=== PATIENT | female | born 1995 | race Caucasian/White ===

== ENCOUNTER 2017-03-07 16:32 | Emergency (ER) | payer MEDICAID, OTHER ==
[~2017-03-07] VITALS: Ht 160 cm; Wt 82.0 kg
[~2017-03-07 16:32] MED LIST: ACET325T33 PO; BEN50 PO; CALC600T PO; CETI10CA PO; ERYTOPOI BOTH EYES; FERGON PO; FERR240T9 PO; GUAI120S26 PO; IBUP-1542 PO; LORA-186 PO; NAPR-260 PO; PRENAT PO
[2017-03-07 17:00] VITALS: Ht 160 cm; Wt 82.0 kg
[2017-03-07] MEDS ORDERED: IBUPROFEN 600 MG TAB PO ONE (18:30)
--- NOTE | 2017-03-07 18:47 | ERD ---
ER Documentation Chief Complaint Date/Time DATE: 03/07/17 TIME: 18:43 Chief Complaint right knee and leg pain x 2 week HPI 21-year-old female complaining of right knee pain 2 weeks. Patient stated that she tripped while walking down the stairs, fell forward and landed on her right knee. She was able to bear weight immediately after the fall. She has been walking with pain. Yesterday, she felt that her right knee "gave out" and she fell again. 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 Denies hitting her head in the fall. Denies any other injuries. ROS All systems reviewed and are negative except as per history of present illness. Medications Home Meds Active Scripts Ibuprofen* (Motrin*) 600 Mg Tab, 600 MG PO Q6H Y for PAIN AND OR ELEVATED TEMP, #30 TAB Prov:EREN MUHAMMAD. POULTRY BONER 03/07/17 Erythromycin* (Erythromycin* Ophthalmic) 1 Applic Oint, 1 APPLIC BOTH EYES QID for 7 Days, EA Prov:MOSES MONTELONGO PA-C 10/02/16 Diphenhydramine Hcl* (Benadryl*) 50 Mg Cap, 50 MG PO QHS, #30 CAP Prov:MOSES MONTELONGO PA-C 10/02/16 Acetaminophen* (Tylenol*) 325 Mg Tablet, 2 TAB PO Q6 Y for PAIN AND OR ELEVATED TEMP, #30 TAB Prov:MOSES MONTELONGO PA-C 09/29/16 Loratadine* (Claritin*) 10 Mg Tablet, 10 MG PO DAILY, #30 TAB Prov:MOSES MONTELONGO PA-C 09/29/16 Naproxen* (Naprosyn*) 500 Mg Tablet, 500 MG PO BID Y for PAIN AND/OR INFLAMMATION, #30 TAB Prov:MOSES MONTELONGO PA-C 09/29/16 Ibuprofen* (Motrin*) 600 Mg Tab, 600 MG PO Q6, #30 TAB Prov:DEANNA HAGER PA-C 08/18/16 Cqkjgxomvhy-S-Mabngqalth Hb* (Guaifenesin* DM Syrup) 120 Ml Syrup, 10 ML PO Q4H Y for COUGH, #120 ML Prov:DEANNA HAGER PA-C 08/18/16 Cetirizine Hcl* (Zyrtec*) 10 Mg Capsule, 10 MG PO DAILY, #30 TAB Prov:DEANNA HAGER PA-C 08/18/16 Ibuprofen* (Motrin*) 600 Mg Tab, 600 MG PO Q6, #30 TAB Prov:SIDNEY CHATMAN PA-C 05/10/16 Ferrous Gluconate* (Fergon*) 325 Mg Tab, 325 MG PO BID, #120 TAB 0 Refills Prov:GROVER MARINO MD 06/11/15 Ibuprofen* (Motrin*) 600 Mg Tab, 600 MG PO Q6, #20 TAB 0 Refills Prov:GROVER MARINO MD 06/11/15 Reported Medications Ferrous Gluconate (Iron) 1 Tab Tablet, 1 TAB PO DAILY 04/14/15 Calcium Carbonate (Oyster Shell Calcium) 600 Mg Tablet, 600 MG PO DAILY 04/14/15 Multivit/Min/Fol Ac/Iron/Pren* ( S*) 1 Tab Tab, 1 TAB PO DAILY, TAB 02/10/15 Allergies Allergies: Coded Allergies: No Known Drug Allergies (Verified Allergy, Mild, 03/07/17) PMhx/Soc History of Surgery: Yes (appendectomy) Hx Neurological Disorder: No Hx Respiratory Disorders: Yes (ASTHMA) Hx Cardiac Disorders: No Hx Miscellaneous Medical Probl: Yes (ANEMIA) Hx Alcohol Use: No Hx Substance Use: No Hx Tobacco Use: No Smoking Status: Never smoker Physical Exam Vitals Vital Signs Date Time Temp Pulse Resp B/P Pulse Ox O2 Delivery O2 Flow Rate FiO2 03/07/17 17:00 98.0 73 18 137/82 98 Physical Exam General impression: Well-developed, well-nourished. Alert, oriented, in no acute distress Head: Normocephalic, atraumatic. Eyes: PERRL, EOM normal. Sclerae are normal. Conjunctiva not injected. Neck: Supple, nontender. No lymphadenopathy. No nuchal rigidity. Respiration: Normal respiratory effort. Lungs clear to auscultate bilaterally. No wheezes, rales or rhonchi. Cardiovascular: Regular rate and rhythm. No murmurs or extra heart sounds. Back: Normal to inspection. No midline spine tenderness. No CVA tenderness. Extremities: Mild swelling noted in the superior aspect of the right knee. Mild tenderness to palpation surrounding the patella on the right knee, more on the superior aspect. No joint line tenderness. Negative anterior and posterior drawers test, negative varus and valgus stress. ROM normal. Neurovascularly intact distally. Neuro: Mental status normal, speech normal. DISPATCHER CLERK grossly intact. Skin: Normal turgor. No rash or lesions. Psych: Normal mood and affect. Results 24 hrs Current Medications Medications (Trade) Dose Ordered Sig/Iva Route PRN Reason Start Time Stop Time Status Last Admin Dose Admin Ibuprofen (Motrin) 600 mg ONCE ONCE PO 03/07/17 18:30 03/07/17 18:32 DC 03/07/17 18:50 PROCEDURE: XR right knee. CLINICAL INDICATION: Knee pain TECHNIQUE: AP, tunnel, lateral and sunrise views are available for review. COMPARISON: None available FINDINGS: The osseous structures are normal in mineralization, architecture and alignment. No fractures are identified. No osseous lesions are identified. The joints are unremarkable. The soft tissues are unremarkable. There is a small suprapatellar joint effusion. IMPRESSION: Small suprapatellar joint effusion No osseous abnormalities identified RPTAT: HGDB .Stephen Haji MD, MD Date Time Electronically viewed and signed by .Stephen Haji MD, MD on 03/07/2017 19:22 .B/ CC: EREN MUHAMMAD POULTRY BONER Procedures/MDM Well-appearing 21-year-old female presents with right knee pain after falling 2 weeks ago. X-ray of the right knee showed mild effusion in the suprapatellar joint space. No fractures or dislocation were seen. The area of injury was immobilized with an Quang wrap. Patient was noted to be comfortable and neurovascularly intact both before and after the immobilization. Patient appears well, stable for discharge and outpatient management. Medical decision making shared with patient and family. Education provided to patient and family. Patient and family expressed understanding of the plan. Medications on discharge: Ibuprofen. Follow-up: Primary care provider in 2-3 days or return to ED if worse. EREN MUHAMMAD NP Mar 07, 2017 18:47
--- NOTE | 2017-03-07 19:23 | RADRPT ---
PROCEDURE: XR right knee. CLINICAL INDICATION: Knee pain TECHNIQUE: AP, tunnel, lateral and sunrise views are available for review. COMPARISON: None available FINDINGS: The osseous structures are normal in mineralization, architecture and alignment. No fractures are i dentified. No osseous lesions are identified. The joints are unremarkable. The soft tissues are u nremarkable. There is a small suprapatellar joint effusion. IMPRESSION: Small suprapatellar joint effusion No osseous abnormalities identified RPTAT: HGDB .Stephen Haji MD, MD Date Time Electronically viewed and signed by .Stephen Haji MD, MD on 03/07/2017 19:22 .B/
[2017-03-07] MEDS ORDERED: IBUP-1542 PO (19:34)
== END 2017-03-07 19:43 | disposition home or self-care (01) ==
LOC: FTE 16:32
DX: S89.91XA Unspecified injury of right lower leg, initial encounter (principal); J45.909 Unspecified asthma, uncomplicated; W10.9XXA Fall (on) (from) unspecified stairs and steps, initial encounter; Y92.9 Unspecified place or not applicable
CPT/HCPCS: 73564; Z7610

== ENCOUNTER 2017-06-23 12:53 | Emergency (ER) | payer MEDICAID ==
[~2017-06-23] VITALS: Wt 79.0 kg
[2017-06-23] MEDS ORDERED: LORAZEPAM 1 MG TAB PO ONE (13:30)
--- NOTE | 2017-06-23 14:56 | ERD ---
ER Documentation Chief Complaint Date/Time DATE: 06/23/17 TIME: 14:51 Chief Complaint PALPITATION, ON AND OFF X2 DAYS, NO PAIN AT THIS TIME HPI 21-year-old female patient with no significant past medical history presents the ED complaining of palpitations that started 3 days ago. Reports that she started to feel weird and started to get a few episodes of intermittent chest pain. Reports that she feels like she cannot breathe as her throat is clogging. Reports that she felt nauseous and slightly dizzy. States that she is going through a lot of stress. Reports that she is working as a [employer]. Denies any fever, chills, vomiting, diarrhea, abdominal pain, weakness. ROS All systems reviewed and are negative except as per history of present illness. Medications Home Meds Active Scripts Ibuprofen* (Motrin*) 600 Mg Tab, 600 MG PO Q6H Y for PAIN AND OR ELEVATED TEMP, #30 TAB Prov:EREN MUHAMMAD CABLE HOOKER 03/07/17 Erythromycin* (Erythromycin* Ophthalmic) 1 Applic Oint, 1 APPLIC BOTH EYES QID for 7 Days, EA Prov:MOSES MONTELONGO PA-C 10/02/16 Diphenhydramine Hcl* (Benadryl*) 50 Mg Cap, 50 MG PO QHS, #30 CAP Prov:MOSES MONTELONGO PA-C 10/02/16 Acetaminophen* (Tylenol*) 325 Mg Tablet, 2 TAB PO Q6 Y for PAIN AND OR ELEVATED TEMP, #30 TAB Prov:MOSES MONTELONGO PA-C 09/29/16 Loratadine* (Claritin*) 10 Mg Tablet, 10 MG PO DAILY, #30 TAB Prov:MOSES MONTELONGO PA-C 09/29/16 Naproxen* (Naprosyn*) 500 Mg Tablet, 500 MG PO BID Y for PAIN AND/OR INFLAMMATION, #30 TAB Prov:MOSES MONTELONGO PA-C 09/29/16 Ibuprofen* (Motrin*) 600 Mg Tab, 600 MG PO Q6, #30 TAB Prov:DEANNA HAGER PA-C 08/18/16 Evtbjoemonq-T-Gswspsyxsi Hb* (Guaifenesin* DM Syrup) 120 Ml Syrup, 10 ML PO Q4H Y for COUGH, #120 ML Prov:DEANNA HAGER PA-C 08/18/16 Cetirizine Hcl* (Zyrtec*) 10 Mg Capsule, 10 MG PO DAILY, #30 TAB Prov:DEANNA HAGER PA-C 08/18/16 Ibuprofen* (Motrin*) 600 Mg Tab, 600 MG PO Q6, #30 TAB Prov:SIDNEY CHATMAN PA-C 05/10/16 Ferrous Gluconate* (Fergon*) 325 Mg Tab, 325 MG PO BID, #120 TAB 0 Refills Prov:GROVER MARINO MD 06/11/15 Ibuprofen* (Motrin*) 600 Mg Tab, 600 MG PO Q6, #20 TAB 0 Refills Prov:GROVER MARINO MD 06/11/15 Reported Medications Ferrous Gluconate (Iron) 1 Tab Tablet, 1 TAB PO DAILY 04/14/15 Calcium Carbonate (Oyster Shell Calcium) 600 Mg Tablet, 600 MG PO DAILY 04/14/15 Multivit/Min/Fol Ac/Iron/Pren* ( S*) 1 Tab Tab, 1 TAB PO DAILY, TAB 02/10/15 Allergies Allergies: Coded Allergies: No Known Drug Allergies (Verified Allergy, Mild, 03/07/17) PMhx/Soc History of Surgery: Yes (appendectomy) Hx Neurological Disorder: No Hx Respiratory Disorders: Yes (ASTHMA) Hx Cardiac Disorders: No Hx Miscellaneous Medical Probl: Yes (ANEMIA) Hx Alcohol Use: No Hx Substance Use: No Hx Tobacco Use: No Physical Exam Vitals Vital Signs Date Time Temp Pulse Resp B/P Pulse Ox O2 Delivery O2 Flow Rate FiO2 06/23/17 12:55 98.0 95 17 147/79 96 Physical Exam Const: Ifs-dcu-qsrrorhau, well-nourished. In no acute distress. Head: Atraumatic, normocephalic Eyes: Normal Conjunctiva without injection. No purulent discharge. PERRL. EOMI ENT: Normal external ear. Ear canal without erythema. Tympanic membrane pearly brown without effusion or bulging. Nasal canal clear with normal turbinates. Moist oropharynx without tonsillar exudates. Non-erythematous pharynx. Uvula midline. No drooling. No trismus. Neck: Full range of motion. No meningismus. No cervical lymphadenopathy. Resp: Clear to auscultation bilaterally. No wheezing, rhonchi, rales, or crackles. No accessory muscle use. No retractions. Cardio: Regular rate and rhythm. No murmurs, rubs or gallops. Abd: Soft, non tender, non distended. Normal bowel sounds. No palpable masses. No rebound tenderness. No guarding. Skin: No petechiae or rashes Back: No midline tenderness. No CVA tenderness. Ext: No cyanosis, or edema. Neur: Awake and alert. Psych: Normal Mood and Affect Results 24 hrs Current Medications Medications (Trade) Dose Ordered Sig/Iva Route PRN Reason Start Time Stop Time Status Last Admin Dose Admin Lorazepam (Ativan) 1 mg ONCE ONCE PO 06/23/17 13:30 06/23/17 13:31 DC 06/23/17 13:15 Procedures/MDM This is a 21-year-old female patient with no significant past medical history presents the ED complaining of palpitations and chest pain. Patient is afebrile and nontoxic-appearing. Patient has normal vital signs. An EKG was ordered to further evaluate patient. Patient was given Ativan 1 mg p.o. which improved her symptoms. EKG reviewed and interpreted by Dr. Guzman Rate/Rhythm: [81 bpm, Normal Sinus Rhythm] No ectopy, no ST elevations, normal axis. QRS, ST, T-waves: [No changes consistent w/ acute ischemia] Impression: [No evidence of ischemia or arrhythmia] Patient symptoms are likely due to anxiety. Relieving stress was discussed with the patient at this time. Resources were given. Low suspicion for acute myocardial infarction, pneumothorax, pneumonia, cardiac tamponade, pulmonary embolism, AAA, aortic dissection, Boerhaave's syndrome, cardiac dysrhythmias, meningitis, intracranial bleed, seizure, stroke, TIA or other emergent conditions. Follow up with primary care physician in 1-2 days. Instructed patient to return to the ED sooner for any worsening symptoms. Patient's questions were answered. Patient understood and agreed with discharge plan. Patient discharged stable. Departure Diagnosis: Primary Impression: Palpitations Condition: Stable Patient Instructions: Your Body's Response to Anxiety, Stress Relief: Activities, Stress Relief: Relaxation, Stress Relief: A Positive Lifestyle, Stress Relief: Changing Your Response, Anxiety Reaction, Palpitations Referrals: RAMSES LÓPEZ MD (PCP) [facility] YOU HAVE RECEIVED A MEDICAL SCREENING EXAM AND THE RESULTS INDICATE THAT YOU DO NOT HAVE A CONDITION THAT REQUIRES URGENT TREATMENT IN THE EMERGENCY DEPARTMENT. FURTHER EVALUATION AND TREATMENT OF YOUR CONDITION CAN WAIT UNTIL YOU ARE SEEN IN YOUR DOCTORS OFFICE WITHIN THE NEXT 1-2 DAYS. IT IS YOUR RESPONSIBILITY TO MAKE AN APPOINTMENT FOR FOLOW-UP CARE. IF YOU HAVE A PRIMARY DOCTOR --you should call your primary doctor and schedule an appointment IF YOU DO NOT HAVE A PRIMARY DOCTOR YOU CAN CALL OUR PHYSICIAN REFERRAL HOTLINE AT IF YOU CAN NOT AFFORD TO SEE A PHYSICIAN YOU CAN CHOSE FROM THE FOLLOWING [facility] [address] [facility] [address] [facility] [facility] [address] [facility] [address] [facility] [facility] [facility] [address] [facility]. [facility] [address] [facility]. [facility] YOU HAVE RECEIVED A MEDICAL SCREENING EXAM AND THE RESULTS INDICATE THAT YOU DO NOT HAVE A CONDITION THAT REQUIRES URGENT TREATMENT IN THE EMERGENCY DEPARTMENT. FURTHER EVALUATION AND TREATMENT OF YOUR CONDITION CAN WAIT UNTIL YOU ARE SEEN IN YOUR DOCTORS OFFICE WITHIN THE NEXT 1-2 DAYS. IT IS YOUR RESPONSIBILITY TO MAKE AN APPOINTMENT FOR FOLOW-UP CARE. IF YOU HAVE A PRIMARY DOCTOR --you should call your primary doctor and schedule and appointment IF YOU DO NOT HAVE A PRIMARY DOCTOR YOU CAN CALL OUR PHYSICIAN REFERRAL HOTLINE AT . IF YOU CAN NOT AFFORD TO SEE A PHYSICIAN YOU CAN CHOSE FROM THE FOLLOWING [facility] INSTITUTIONS: [facility] [address] [place] [address] [facility] [address] [place] [address] [facility] [address] [place] [address] [facility] URGENT [facility]/SPECIALTIES Additional Instructions: Call your primary care doctor TOMORROW for an appointment during the next 2-3 days.See the doctor sooner or return here if your condition worsens before your appointment time. DEANNA HAGER PA-C Jun 23, 2017 14:56
== END 2017-06-23 13:55 | disposition home or self-care (01) ==
LOC: FTE 12:53
DX: R00.2 Palpitations (principal); J45.909 Unspecified asthma, uncomplicated
CPT/HCPCS: 93005; Z7502; Z7610

== ENCOUNTER 2018-11-27 18:57 | Emergency (ER) | payer MEDICAID, OTHER ==
[~2018-11-27] VITALS: Wt 80.4 kg
[~2018-11-27 18:57] MED LIST changes: -NAPR-260 PO; +NAPR-985 PO
[2018-11-27] MEDS ORDERED: PROM6.2515 PO (22:26)
[2018-11-27] MEDS ORDERED: MED4DP PO (22:26)
[2018-11-27] MEDS ORDERED: BENZ-6 PO (22:26)
[2018-11-27] MEDS ORDERED: ALBU8.5H8 INH (22:26)
[2018-11-27 22:40] VITALS: BP 112/68; PULSE 77; RESP 18
--- NOTE | 2018-11-28 00:14 | ERD ---
ER Documentation Chief Complaint Chief Complaint COUGH, FEVER, [place] X'S 1 MONTH HPI 23-year-old female presenting with cough. Patient states she has had a cough for a month. Dry cough. She has not taken any medications for symptoms. She had a runny nose for 3 days with sore throat that started today. No medication use. Denies medical problems. NKDA. Surgical history is appendectomy. Social history denies ROS All systems reviewed and are negative except as per history of present illness. Medications Home Meds Active Scripts Promethazine Hcl* (Promethazine Hcl* Syrup) 6.25 Mg/5 Ml Syrup, 6.25 MG PO Q6H PRN for COUGH, #100 ML Prov:KATE MARK PA-C 11/27/18 Benzonatate* (Tessalon Perle*) 100 Mg Capsule, 100 MG PO Q8H PRN for COUGH, #30 CAP Prov:KATE MARK PA-C 11/27/18 Methylprednisolone* (Medrol* DOSE PACK) 4 Mg/Dose-Pack Tab.ds.pk, 4 MG PO . DIRECTED, #1 PACKET Prov:KATE MARK PA-C 11/27/18 Albuterol Sulfate* (Proair HFA*) 8.5 Gm Hfa.aer.ad, 2 PUFF INH Q4, #1 INHALER Prov:KATE MARK PA-C 11/27/18 Ibuprofen* (Motrin*) 600 Mg Tab, 600 MG PO Q6H PRN for PAIN AND OR ELEVATED TEMP, #30 TAB Prov:EREN MUHAMMAD ACQUISITION COST ESTIMATOR 03/07/17 Erythromycin* (Erythromycin* Ophthalmic) 1 Applic Oint, 1 APPLIC BOTH EYES QID for 7 Days, EA Prov:MOSES MONTELONGO PA-C 10/02/16 Diphenhydramine Hcl* (Benadryl*) 50 Mg Cap, 50 MG PO QHS, #30 CAP Prov:MOSES MONTELONGO PA-C 10/02/16 Acetaminophen* (Tylenol*) 325 Mg Tablet, 2 TAB PO Q6 PRN for PAIN AND OR ELEVATED TEMP, #30 TAB Prov:MOSES MONTELONGO PA-C 09/29/16 Loratadine* (Claritin*) 10 Mg Tablet, 10 MG PO DAILY, #30 TAB Prov:MOSES MONTELONGO PA-C 09/29/16 Naproxen* (Naprosyn*) 500 Mg Tablet, 500 MG PO BID PRN for PAIN AND/OR INFLAMMATION, #30 TAB Prov:MOSES MONTELONGO PA-C 09/29/16 Ibuprofen* (Motrin*) 600 Mg Tab, 600 MG PO Q6, #30 TAB Prov:DEANNA HAGER PA-C 08/18/16 Lshjvwmfohi-P-Giutuaeyvd Hb* (Guaifenesin* DM Syrup) 120 Ml Syrup, 10 ML PO Q4H PRN for COUGH, #120 ML Prov:DEANNA HAGER PA-C 08/18/16 Cetirizine Hcl* (Zyrtec*) 10 Mg Capsule, 10 MG PO DAILY, #30 TAB Prov:DEANNA HAGER PA-C 08/18/16 Ibuprofen* (Motrin*) 600 Mg Tab, 600 MG PO Q6, #30 TAB Prov:SIDNEY CHATMAN PA-C 05/10/16 Ferrous Gluconate* (Fergon*) 325 Mg Tab, 325 MG PO BID, #120 TAB 0 Refills Prov:GROVER MARINO MD 06/11/15 Ibuprofen* (Motrin*) 600 Mg Tab, 600 MG PO Q6, #20 TAB 0 Refills Prov:GROVER MARINO MD 06/11/15 Reported Medications Ferrous Gluconate (Iron) 1 Tab Tablet, 1 TAB PO DAILY 04/14/15 Calcium Carbonate (Oyster Shell Calcium) 600 Mg Tablet, 600 MG PO DAILY 04/14/15 Multivit/Min/Fol Ac/Iron/Pren* ( S*) 1 Tab Tab, 1 TAB PO DAILY, TAB 02/10/15 Allergies Allergies: Coded Allergies: No Known Drug Allergies (Verified Allergy, Mild, 03/07/17) PMhx/Soc History of Surgery: Yes (appendectomy) Hx Neurological Disorder: No Hx Respiratory Disorders: Yes (ASTHMA) Hx Cardiac Disorders: No Hx Miscellaneous Medical Probl: Yes (ANEMIA) Hx Alcohol Use: No Hx Substance Use: No Hx Tobacco Use: No Smoking Status: Never smoker FmHx Family History: No diabetes, No coronary disease, No other Physical Exam Vitals Vital Signs Date Temp Pulse Resp B/P (MAP) Pulse Ox O2 O2 Flow FiO2 Time Delivery Rate 11/27/18 98.4 77 18 112/68 99 Room Air 22:40 (83) 11/27/18 98.2 72 18 133/69 99 19:17 (90) Physical Exam GENERAL: The patient is well-appearing, well-nourished, in no acute distress HEENT: Atraumatic. Conjunctivae are pink. Pupils equal, round, and reactive to light. There is no scleral icterus. Tympanic membranes clear bilaterally. Oropharynx clear. No nystagmus or photophobia. NECK: C-spine is soft and supple. There is no meningismus. There is no cervical lymphadenopathy. CHEST: Clear to auscultation bilaterally. There are no rales, wheezes or rhonchi. HEART: Regular rate and rhythm. No murmurs, clicks, rubs or gallops. No S3 or S4. Procedures/MDM DIAGNOSTIC IMAGING REPORT Patient: HUGO CHAVEZ : 06/06/2009 Age: 9 Sex: F MR #: [id number] DOS: 11/27/182050 Ordering MD: HANY MARK PA-C Location: E Room/Bed: PROCEDURE: US Abdomen (right lower quadrant). CLINICAL INDICATION: Right lower quadrant pain TECHNIQUE: Multiple real-time longitudinal and transverse images of the right lower quadrant of the abdomen were acquired utilizing a curved array transducer. Images were reviewed on a high-resolution PACS workstation. COMPARISON: Compared to the previous study done 08/16/2018. FINDINGS: The appendix is again not visualized. No free fluid or fluid collection is seen. IMPRESSION: 1. The appendix is again not visualized and therefore, acute appendicitis cannot be excluded sonographically requiring clinical correlation. 2. No extraluminal fluid collection is seen in the right lower quadrant of the abdomen. MDM: 23-year-old female presenting with cough. I have low suspicion for respiratory distress or hypoxia. Vitals are stable. I have low suspicion for pneumonia. Patient is discharged stricter precautions and told to follow-up with primary care within 1-2 days for close evaluation. Patient is told if symptoms change or worsen to immediately return to the ER. All questions answered at discharge Departure Diagnosis: Primary Impression: Cough Condition: Stable Patient Instructions: Cough, Chronic, Uncertain Cause, (Adult) Referrals: [facility] YOU HAVE RECEIVED A MEDICAL SCREENING EXAM AND THE RESULTS INDICATE THAT YOU DO NOT HAVE A CONDITION THAT REQUIRES URGENT TREATMENT IN THE EMERGENCY DEPARTMENT. FURTHER EVALUATION AND TREATMENT OF YOUR CONDITION CAN WAIT UNTIL YOU ARE SEEN IN YOUR DOCTORS OFFICE WITHIN THE NEXT 1-2 DAYS. IT IS YOUR RESPONSIBILITY TO MAKE AN APPOINTMENT FOR FOLOW-UP CARE. IF YOU HAVE A PRIMARY DOCTOR --you should call your primary doctor and schedule an appointment IF YOU DO NOT HAVE A PRIMARY DOCTOR YOU CAN CALL OUR PHYSICIAN REFERRAL HOTLINE AT IF YOU CAN NOT AFFORD TO SEE A PHYSICIAN YOU CAN CHOSE FROM THE FOLLOWING [facility] CLINICS [facility] [address] [facility] [address] [facility] [address] [facility] [address] [facility] [address] [facility]. [facility]. [address] Additional Instructions: FOLLOW UP WITH YOUR PRIMARY CARE PHYSICIAN TOMORROW.Return to this facility if you are not improving as expected. KATE MARK PA-C Nov 28, 2018 00:14
== END 2018-11-27 22:41 | disposition home or self-care (01) ==
LOC: FTE 18:57
DX: R05 Cough (principal); J45.909 Unspecified asthma, uncomplicated
CPT/HCPCS: 71045; Z7502